=== PATIENT | male | born 1985 | race Caucasian/White ===

== ENCOUNTER 2020-04-29 19:26 | Emergency (ER) | payer BC ==
--- NOTE | 2020-04-29 20:55 | ED ---
Head Injury HPI - General Chief complaint: Head Injury Stated complaint: Head pain Time Seen by Provider: 04/29/20 19:37 Source: patient Mode of arrival: ambulatory Limitations: no limitations - History of Present Illness Initial comments: Patient is a 34-year-old male presenting to the emergency department with concerns of a headache. Patient states he was at [facility]'s approximate 2 hours prior to arrival, when a piece of wood fell on the back of his head. He denies loss of consciousness, he denies being on blood thinners. He does report a mild headache and also some upper back muscle pain. Patient denies any blurry vision, no neck pain. He states he is unsure of how high the piece of wood was an fell on him. He states it was approximate 6 feet in length, 1 inch in depth. He states he was able to drive himself home from the store. He has no further complaints at this time. Upon arrival to the ER, his vital signs are stable. - Related Data Home Medications Medication Instructions Recorded Confirmed No Known Home Medications 04/29/20 04/29/20 Allergies/Adverse reactions: Allergies Allergy/AdvReac Type Severity Reaction Status Date / Time No Known Allergies Allergy Verified 04/29/20 19:34 Review of Systems ROS Statement: Those systems with pertinent positive or pertinent negative responses have been documented in the HPI. ROS Other: All systems not noted in ROS Statement are negative. Past Medical History Past Medical History: Hypertension History of Any Multi-Drug Resistant Organisms: None Reported Past Surgical History: No Surgical Hx Reported Past Psychological History: No Psychological Hx Reported Smoking Status: Never smoker Past Alcohol Use History: None Reported Past Drug Use History: None Reported General Exam - General Exam Comments Initial Comments: GENERAL: Patient is well-developed and well-nourished. Patient is nontoxic and in no acute distress. HEAD: Atraumatic, normocephalic. There are no hematomas, there appears to be a superficial abrasion to the posterior right side of his head. No signs of basilar skull fracture. EYES: Pupils equal round and reactive to light, extraocular movements intact, sclera anicteric, conjunctiva are normal. Eyelids were unremarkable. ENT: TMs normal, nares patent, oropharynx clear without exudates. Moist mucous membranes. NECK: Normal range of motion, supple without lymphadenopathy or JVD. There is no midline tenderness. LUNGS: Unlabored respirations. Breath sounds clear to auscultation bilaterally and equal. No wheezes rales or rhonchi. HEART: Regular rate and rhythm without murmurs, rubs or gallops. ABDOMEN: Soft, nontender, normoactive bowel sounds. No guarding, no rebound. No masses appreciated. : Deferred MUSCULOSKELETAL: Normal extremities with adequate strength and normal range of motion, no pitting or edema. No clubbing or cyanosis. There is some mild discomfort of the upper trapezius muscles bilaterally. NEUROLOGICAL: Patient is alert and oriented x 3. Motor and sensory are also intact. Cranial nerves II through XII grossly intact. Symmetrical smile. Normal speech, normal gait. PSYCH: Normal mood, normal affect. SKIN: Warm, Dry, normal turgor, no rashes or lesions noted. Limitations: no limitations Course Vital Signs 04/29/20 19:28 Temperature 98.7 F Pulse Rate 84 Respiratory 18 Rate Blood Pressure 139/90 O2 Sat by Pulse 98 Oximetry Medical Decision Making - Medical Decision Making Patient is a 34-year-old male here for some mild head pain after a piece of wood fell on him at [facility] approximately 2 hours prior to arrival. His exam is unremarkable except for a small abrasion to his posterior scalp. I did do a CT of his head and neck, there are no acute abnormalities seen. I discussed with patient this most likely a contusion, and muscle spasms. Recommended Tylenol and/or ibuprofen for any discomfort. He can follow up with his regular doctor. He is in agreement with this plan of care. He is stable for discharge. Return parameters were discussed with the patient he verbalizes understanding. Case discussed with Dr. Joyce. Disposition Clinical Impression: Hematoma of scalp, Muscle spasm of back Disposition: HOME SELF-CARE Condition: Stable Instructions (If sedation given, give patient instructions): Contusion in Adults (ED) Additional Instructions: Please return to the Emergency Department if symptoms worsen or any other concerns. Recommend Tylenol and/or Motrin for any discomfort. May apply ice or heat to the area as well. Follow-up with your regular physician. Is patient prescribed a controlled substance at d/c from ED?: No Referrals: None,Stated [Primary Care Provider] - 1-2 days Time of Disposition: 21:19
--- NOTE | 2020-04-29 20:57 | CT ---
EXAMINATION TYPE: CT brain cspine wo con DATE OF EXAM: 04/29/2020 COMPARISON: None available. HISTORY: head injury CT DLP: 1635 mGycm Automated exposure control for dose reduction was used. TECHNIQUE: CT scan of the head and cervical spine are performed without contrast. FINDINGS: There is no acute intracranial hemorrhage, mass effect, or midline shift identified. The ventricles and sulci are within normal limits in size. The globes are intact and the visualized sin uses are clear. Cervical spine is visualized in its entirety from C1 through upper thoracic levels and demonstrates s atisfactory alignment without evidence of acute fracture or dislocation. Prevertebral soft tissue ap pears within normal limits. The C1-C2 articulation is unremarkable. IMPRESSION: 1. There is no acute fracture or dislocation evident in the cervical spine. 2. No acute intracranial hemorrhage, mass effect, or midline shift is seen.
[2020-04-29 21:33] VITALS: BP 137/78; PULSE 82; RESP 16; TEMP 98
== END 2020-04-29 21:32 | disposition home or self-care (01) ==
LOC: EC 19:26
DX: S00.03XA Contusion of scalp, initial encounter (principal); M62.830 Muscle spasm of back; W20.8XXA Other cause of strike by thrown, projected or falling object, initial encounter; Y92.89 Other specified places as the place of occurrence of the external cause
CPT/HCPCS: 70450; 72125; 99283

== ENCOUNTER 2021-01-26 08:27 | Emergency (ER) | payer BC ==
[2021-01-26 08:42] VITALS: BP 148/94; PULSE 63; RESP 18; TEMP 98.1
[2021-01-26] MEDS ORDERED: DIPH,PERTUS(ACELL)TETVAC-LF 0.5 ML VIAL IM ONE (09:11)
[2021-01-26] MEDS ORDERED: CEPHALEXIN 500MG STARTER PACK 4 CAP BTL PO STA (09:11)
--- NOTE | 2021-01-26 09:26 | ED ---
General Adult HPI - General Chief complaint: Wound/Laceration Stated complaint: thumb injury Time Seen by Provider: 01/26/21 08:42 Source: patient, RN notes reviewed Mode of arrival: ambulatory Limitations: no limitations - History of Present Illness Initial comments: 35-year-old male with a past medical history of hypertension presents to the emergency room for a chief complaint of thumb injury. Patient states 5 days ago he lacerated the left thumb using an X-[employer] knife. States since then he has not been able to fully extend the thumb. Patient states he is concerned he may have cut his tendon. Patient denies fevers. Denies pain up the arm. Denies any redness or drainage. Tetanus not up-to-date. Patient has no other complaints at this time including shortness of breath, chest pain, abdominal pain, nausea or vomiting, headache, or visual changes. - Related Data Previous Rx's Medication Instructions Recorded Cephalexin [Keflex] 500 mg PO QID 7 Days #28 cap 01/26/21 Allergies Allergy/AdvReac Type Severity Reaction Status Date / Time No Known Allergies Allergy Verified 01/26/21 10:05 Review of Systems ROS Statement: Those systems with pertinent positive or pertinent negative responses have been documented in the HPI. ROS Other: All systems not noted in ROS Statement are negative. Past Medical History Past Medical History: Hypertension History of Any Multi-Drug Resistant Organisms: None Reported Past Surgical History: No Surgical Hx Reported Past Psychological History: No Psychological Hx Reported Smoking Status: Never smoker Past Alcohol Use History: None Reported Past Drug Use History: None Reported General Exam Limitations: no limitations General appearance: alert, in no apparent distress Head exam: Present: atraumatic Eye exam: Present: normal appearance, PERRL, EOMI. Absent: scleral icterus, conjunctival injection ENT exam: Present: normal exam, mucous membranes moist Neck exam: Present: normal inspection, full ROM. Absent: tenderness Respiratory exam: Present: normal lung sounds bilaterally. Absent: respiratory distress, wheezes Cardiovascular Exam: Present: regular rate, normal rhythm, normal heart sounds Extremities exam: Present: normal capillary refill (cap refill less than 2 seconds left thumb and left upper extremity. Radial pulse 2+.), other (2 Centimeter laceration noted on the dorsal left thumb). Absent: full ROM (Patient unable to fully extend left thumb. Able to flex left thumb.), joint swelling (No Erythema edema drainage or signs of infection noted.) Course Vital Signs 01/26/21 08:39 Temperature 98.1 F Pulse Rate 63 Respiratory 18 Rate Blood Pressure 148/94 O2 Sat by Pulse 98 Oximetry Procedures - Orthopedic Splinting/Casting Injury #1 Side: left Upper Extremity Injury Location: short arm Upper Extremity Immobilizer: thumb spica Additional Comments: Neurovascular status intact after splint applied Medical Decision Making - Medical Decision Making X-ray of the left thumb shows no acute bone abnormalities evident. Correlate to exclude tendon injury. Patient cannot extend the left thumb suspect tendon laceration. Case was discussed with on-call orthopedic physician Dr. Clifton. Agreeable to x-ray, treatment with antibiotics, and splinting. Requests Dr. Mandel be the orthopedic doctor on patient's paperwork as that is their hand surgeon. Patient will be discharged home to follow up. Will return here for any worsening symptoms. Disposition Clinical Impression: Laceration, Extensor tendon rupture of hand Disposition: HOME SELF-CARE Condition: Good Instructions (If sedation given, give patient instructions): Finger Laceration (ED) Additional Instructions: Please keep splint dry. Follow-up with orthopedics by calling today for the earliest appointment. Return to the emergency room for any worsening symptoms. Take antibiotic as directed. Prescriptions: Cephalexin [Keflex] 500 mg PO QID 7 Days #28 cap Is patient prescribed a controlled substance at d/c from ED?: No Referrals: Rodger Mix MD [Primary Care Provider] - 1-2 days Estefania Mandel DO [Doctor of Osteopathic Medicine] - 1-2 days Time of Disposition: 11:17
--- NOTE | 2021-01-26 09:30 | XR ---
Left finger HISTORY: Laceration to thumb, unable to extend 3 views of the first digit of the left hand Bone mineralization, joint spaces and alignment are maintained, mild spurring at the carpometacarpal joint suggests osteoarthritic change. No radiopaque foreign body. Lucency is present within the soft tissues consistent with patient's history of laceration. IMPRESSION: No acute bone abnormalities evident. Correlate to exclude tendon injury.
== END 2021-01-26 11:21 | disposition home or self-care (01) ==
LOC: EC 08:27
DX: S61.012A Laceration without foreign body of left thumb without damage to nail, initial encounter (principal); Z23 Encounter for immunization; I10 Essential (primary) hypertension; W26.0XXA Contact with knife, initial encounter
CPT/HCPCS: 90715

== ENCOUNTER → 2022-09-16 | Outpatient (CLI) | payer BC ==
--- NOTE | 2022-09-16 14:22 | CT ---
EXAMINATION TYPE: CT soft tissue neck w con DATE OF EXAM: 09/16/2022 1:51 PM COMPARISON: None HISTORY: Right sided sialodenitis. CT DLP: 1055.9 mGycm Automated exposure control for dose reduction was used. CONTRAST: CT scan of the neck is performed following with IV Contrast, patient injected with 100ml mL of Isovue 300. Axial images are obtained, coronal and sagittal reformatted images are reviewed. FINDINGS: Airway: No gross abnormality seen. Parotid/submandibular glands: Are symmetric in size with no abnormal attenuation or surrounding infl ammatory changes. There is a calcification on axial image 67 in the region of [place]'s duct on the r ight. No dilation of the duct.. Carotid/Vascular Structures: There is normal enhancement of the vasculature with no evidence of signi ficant carotid bifurcation stenosis. Osseous Structures: Osseous structures intact. Other: There is shotty lymphadenopathy seen throughout the compartments of the neck with the largest node seen in the left carotid space measuring 7 cm in short axis. Oropharynx and nasopharynx are symmetric. Intracranial structures have a normal appearance. Orbits ar e symmetric. Lung apices are clear. Nasal septal deviation noted. Thyroid appears homogeneous. IMPRESSION: 1. There is a 6 mm calcification in the expected course of [place]'s duct of the right submandibular gland. There is no ductal dilation seen. There is no diagnostic evidence of sialoadenitis. 2. Nonspecific shotty lymphadenopathy
== END | disposition home or self-care (01) ==
LOC: RADCTMAIN 13:26
PROVIDERS: ATTEND Otolaryngology
DX: K11.22 Acute recurrent sialoadenitis (principal); R59.1 Generalized enlarged lymph nodes
CPT/HCPCS: 70491; Q9967

== ENCOUNTER → 2024-09-20 | Outpatient (CLI) | payer BC ==
[2024-09-20 15:16] LABS: Basophils # (A) 0.02 X 10*3/uL (0.00-0.10); Basophils % (A) 0.3 %; Eosinophils # (A) 0.05 X 10*3/uL (0.04-0.35); Eosinophils % (A) 0.9 %; HCT 46.2 % (39.6-50.0); HGB 15.3 g/dL (13.0-17.0); Immature Grans, Automated 0.30 %; Lymphocytes # (A) 1.97 X 10*3/uL (0.90-5.00); Lymphocytes % (A) 33.5 %; MCH 27.6 pg (27.0-32.0); MCHC 33.1 g/dL (32.0-37.0); MCV 83.2 FL (80.0-97.0); Monocytes # (A) 0.65 X 10*3/uL (0.20-1.00); Monocytes % (A) 11.1 %; NRBC Per 100 WBC 0 X 10*3/uL (0.00-0.01); Neutrophils # (A) 3.17 X 10*3/uL (1.80-7.70); Neutrophils % (A) 53.9 %; Platelet Count 145 X 10*3/uL (140-440); RBC 5.55 X 10*6/uL (4.40-5.60); RDW 13.1 % (11.5-14.5); WBC 5.88 X 10*3/uL (4.50-10.00)
[2024-09-20 15:20] LABS: Anion Gap 8.40 mmol/L (4.00-12.00); Blood Urea Nitrogen 16.4 mg/dL (9.0-27.0); Carbon Dioxide 26.6 mmol/L (21.6-31.8); Chloride 100 mmol/L (96-109); Cholesterol 155.00 mg/dL (0.00-200.00); Glucose 94 mg/dL (70-110); HDL Cholesterol 34.00 mg/dL (40.00-60.00); LDL Cholesterol,Calculated 91.8 mg/dL (0.0-131.0); Potassium 4.1 mmol/L (3.5-5.5); Sodium 135 mmol/L (135-145); Triglycerides 146.00 mg/dL (0.00-149.00); VLDL Calculation 29.20 mg/dL (5.00-40.00)
[2024-09-20 15:21] LABS: ALT 46 U/L (10-49); AST 28 U/L (14-35); Albumin 4.5 g/dL (3.8-4.9); Albumin/Globulin Ratio 1.50 Ratio (1.60-3.17); Alkaline Phosphatase 127 U/L (41-126); BUN/Creat Ratio 20.50 Ratio (12.00-20.00); Calcium 9.3 mg/dL (8.7-10.3); Globulin 3.0 g/dL (1.6-3.3); Total Protein 7.5 g/dL (6.2-8.2)
== END | disposition home or self-care (01) ==
LOC: LABWHC1 09:37
PROVIDERS: ATTEND Family Medicine
DX: Z00.00 Encounter for general adult medical examination without abnormal findings (principal); Z11.1 Encounter for screening for respiratory tuberculosis; E87.8 Other disorders of electrolyte and fluid balance, not elsewhere classified; E83.51 Hypocalcemia; E11.9 Type 2 diabetes mellitus without complications; E78.5 Hyperlipidemia, unspecified; D64.9 Anemia, unspecified; N28.9 Disorder of kidney and ureter, unspecified; R74.01 Elevation of levels of liver transaminase levels
CPT/HCPCS: 36415; 80053; 80061; 85025; 86480